=== PATIENT | female | born 1985 | race American Indian/Alaskan Native ===

== ENCOUNTER 2017-12-27 01:13 | Emergency (ER) | payer SELFPAY ==
[2017-12-27 03:10] VITALS: BP 106/67
--- NOTE | 2017-12-27 04:41 | XRay Report ---
FINAL REPORT PROCEDURE: XR FOOT 2V LT TECHNIQUE: LEFT foot radiographs, AP, lateral, and oblique views. CPT 82767 HISTORY: pain and swelling COMPARISON: No prior studies are available for comparison. FINDINGS: Fracture (s) and/or Dislocation(s): None . Alignment: Normal . Joint space(s): Normal . Soft tissues: Normal . Bone mineralization: Normal . Foreign bodies: None . Calcaneal spurring: None . IMPRESSION: Normal Examination .
--- NOTE | 2017-12-27 04:41 | XRay Report ---
FINAL REPORT PROCEDURE: XR FOOT 2V RT TECHNIQUE: RIGHT foot radiographs, AP and lateral views. HISTORY: pain and swelling COMPARISON: No prior studies are available for comparison. FINDINGS: Fracture (s) and/or Dislocation(s): None . Alignment: Normal. Joint space(s): Normal. Soft tissues: Normal. Bone mineralization: Normal. Foreign bodies: None. Calcaneal spurring: None. IMPRESSION: Normal Examination.
--- NOTE | 2017-12-27 04:42 | XRay Report ---
FINAL REPORT PROCEDURE: XR ANKLE 2V LT TECHNIQUE: LEFT ankle radiographs, AP and lateral views. HISTORY: pain and swelling COMPARISON: No prior studies are available for comparison. FINDINGS: Fracture (s) and/or Dislocation(s): None. Alignment: Normal. Joint space(s): Normal. Soft tissues: Normal. Bone mineralization: Normal. Foreign bodies: Normal. Calcaneal spurring: Normal. IMPRESSION: Normal Examination .
--- NOTE | 2017-12-27 04:44 | XRay Report ---
FINAL REPORT PROCEDURE: XR ANKLE 2V RT TECHNIQUE: RIGHT ankle radiographs, AP and lateral views. HISTORY: pain and swelling COMPARISON: No prior studies are available for comparison. FINDINGS: Fracture (s) and/or Dislocation(s): None. Alignment: Normal. Joint space(s): Normal. Soft tissues: Normal. Bone mineralization: Normal. Foreign bodies: Normal. Calcaneal spurring: Normal. IMPRESSION: Normal Examination .
--- NOTE | 2017-12-27 05:15 | Emergency Department Report ---
ED Lower Extremity HPI - General Chief Complaint: Extremity Injury, Lower Stated Complaint: RT ANKLE PAIN Time Seen by Provider: 12/27/17 05:10 Source: patient Mode of arrival: Ambulatory Limitations: No Limitations - History of Present Illness Initial Comments: 32-year-old -Thai female with a past medical history of plantar fasciitis, herpes and seizures come in today complaining of bilateral lower extremity swelling and pain that started yesterday. Patient reports that she is recently moved here from [place] in had a fall from moving her feet too fast. Patient has not taken any pain medication as it she reports it was at home. Complaint: foot injury -: days(s) (1) Injury: Foot: Left, Right (status post fall) Place: street/outdoors Severity scale (0 -10): 6 Context: fall - Related Data Previous Rx's Medication Instructions Recorded Last Taken Type Ibuprofen [Motrin 600 MG tab] 600 mg PO Q8H #30 tablet 12/27/17 Unknown Rx Allergies Allergy/AdvReac Type Severity Reaction Status Date / Time No Known Allergies Allergy Unverified 12/27/17 03:09 ED Review of Systems ROS: Stated complaint: RT ANKLE PAIN Other details as noted in HPI Comment: All other systems reviewed and negative Musculoskeletal: arthralgia ED Past Medical Hx - Past Medical History Previous Medical History?: Yes Hx Seizures: Yes Additional medical history: Herpes, Plantar fasciitis - Surgical History Past Surgical History?: No - Social History Smoking Status: Never Smoker Substance Use Type: None - Medications Home Medications: Home Medications Medication Instructions Recorded Confirmed Last Taken Type Ibuprofen [Motrin 600 MG tab] 600 mg PO Q8H #30 tablet 12/27/17 Unknown Rx ED Physical Exam - General Limitations: No Limitations General appearance: alert, in no apparent distress - Head Head exam: Present: atraumatic, normocephalic - ENT ENT exam: Present: mucous membranes moist - Cardiovascular Cardiovascular Exam: Present: regular rate, normal rhythm. Absent: systolic murmur, diastolic murmur, rubs, gallop - GI/Abdominal GI/Abdominal exam: Present: soft, normal bowel sounds - Extremities Exam Extremities exam: Present: normal inspection, full ROM. Absent: tenderness - Back Exam Back exam: Present: normal inspection - Neurological Exam Neurological exam: Present: alert, oriented X3, normal gait - Psychiatric Psychiatric exam: Present: normal affect, normal mood - Skin Skin exam: Present: warm, dry, intact, normal color. Absent: rash ED Course Vital Signs 12/27/17 03:05 Temperature 97.5 F L Pulse Rate 53 L Respiratory 19 Rate Blood Pressure 106/67 O2 Sat by Pulse 98 Oximetry ED Lower Extremity MDM - Radiology Data X-ray of bilateral feet and bilateral ankle shows normal examination. - Medical Decision Making Patient has been evaluated by this provider fast track. Ibuprofen given for pain management. Discussed the patient to follow-up with her primary care provider or industrial paramedic. Critical care attestation.: If time is entered above; I have spent that time in minutes in the direct care of this critically ill patient, excluding procedure time. ED Disposition Clinical Impression: Bilateral foot pain Disposition: [id number] TO HOME OR SELFCARE Is pt being admited?: No Does the pt Need Aspirin: No Condition: Stable Additional Instructions: Please take pain medication as needed for pain. Follow-up with the industrial paramedic. Prescriptions: Ibuprofen [Motrin 600 MG tab] 600 mg PO Q8H #30 tablet Referrals: PRIMARY CAREMD [Primary Care Provider] - 3-5 Days CALRIN OSCAR DPM [Staff Physician] - 3-5 Days NATE CAMARGO MD [Staff Physician] - 3-5 Days
[2017-12-27] MEDS ORDERED: MOTRIN PO ONE (05:18)
== END 2017-12-27 05:40 | disposition home or self-care (01) ==
LOC: ED 01:13
DX: M79.672 Pain in left foot (principal); M79.671 Pain in right foot; M72.2 Plantar fascial fibromatosis
CPT/HCPCS: 99283

== ENCOUNTER 2020-04-10 03:59 | Emergency (ER) | payer SELFPAY ==
--- NOTE | 2020-04-10 04:14 | Emergency Department Report ---
ED Abdominal Pain HPI - General Stated Complaint: ABDOMINAL PAIN PUI?: No - History of Present Illness Initial Comments: Patient is a A1 34-year-old -Slovenian female with past medical history of seizures who presents to the ED with complaint of acute onset persistent suprapubic pain for the last 2 weeks, and heavy vaginal bleeding for the last 8 hours. Patient states that she suspects that she may be having missed her menstrual cycle a month ago. Patient states that she had been on control using NuvaRing and took this about 2 months ago. Patient states that she has not had a menstrual cycle consistently since then. Patient states that she suspects that she may have conceived and is now having a miscarriage. Patient also complains of nausea and vomiting. Patient denies dizziness, fever, chills, dysuria, urinary frequency and urgency, chest pain, shortness of breath, diarrhea, cough, sore throat, headache, vaginal discharge or heavy lifting and traumatic injury. MD Complaint: abdominal pain, other (Vaginal bleeding) -: Sudden, week(s) (2) Location: suprapubic Radiation: none Migration to: no migration Severity: severe Severity scale (0 -10): 7 Quality: cramping, aching, sharp Consistency: constant Improves With: nothing Worsens With: nothing Context: other (Suspects miscarriage) Associated Symptoms: denies other symptoms, nausea, vomiting, hematuria, other (Vaginal bleeding). denies: diarrhea, fever, chills, constipation, dysuria, hematemesis, hematochezia - Related Data LMP Date: 02/07/20 LMP (females 10-50): 2 months Previous Rx's Medication Instructions Recorded Last Taken Type Ibuprofen [Motrin 600 MG tab] 600 mg PO Q8H #30 tablet 12/27/17 Unknown Rx Ibuprofen [Motrin] 800 mg PO Q8HR PRN #30 tablet 04/10/20 Unknown Rx Ondansetron [Zofran Odt] 4 mg PO Q6HR PRN #20 tab.rapdis 04/10/20 Unknown Rx Allergies Allergy/AdvReac Type Severity Reaction Status Date / Time No Known Allergies Allergy Unverified 12/27/17 03:09 ED Review of Systems ROS: Stated complaint: ABDOMINAL PAIN Other details as noted in HPI Constitutional: denies: chills, fever Eyes: denies: eye pain, eye discharge, vision change ENT: denies: ear pain, throat pain Respiratory: denies: cough, shortness of breath, wheezing Cardiovascular: denies: chest pain, palpitations Endocrine: no symptoms reported Gastrointestinal: abdominal pain, nausea, vomiting. denies: diarrhea Genitourinary: abnormal menses (Vaginal bleeding). denies: urgency, dysuria, discharge Musculoskeletal: denies: back pain, joint swelling, arthralgia Skin: denies: rash, lesions Neurological: denies: headache, weakness, paresthesias Psychiatric: denies: anxiety, depression Hematological/Lymphatic: denies: easy bleeding, easy bruising ED Past Medical Hx - Past Medical History Hx Seizures: Yes Additional medical history: Herpes, Plantar fasciitis - Social History Smoking Status: Never Smoker Substance Use Type: None - Medications Home Medications: Home Medications Medication Instructions Recorded Confirmed Last Taken Type Ibuprofen [Motrin 600 MG tab] 600 mg PO Q8H #30 tablet 12/27/17 Unknown Rx Ibuprofen [Motrin] 800 mg PO Q8HR PRN #30 tablet 04/10/20 Unknown Rx Ondansetron [Zofran Odt] 4 mg PO Q6HR PRN #20 tab.rapdis 04/10/20 Unknown Rx ED Physical Exam - General General appearance: alert, in no apparent distress - Head Head exam: Present: atraumatic, normocephalic, normal inspection - Eye Eye exam: Present: normal appearance, PERRL, EOMI Pupils: Present: normal accommodation - ENT ENT exam: Present: normal exam, normal orophraynx, mucous membranes moist, TM's normal bilaterally, normal external ear exam - Neck Neck exam: Present: normal inspection, full ROM - Respiratory Respiratory exam: Present: normal lung sounds bilaterally. Absent: respiratory distress, wheezes, rales, rhonchi, chest wall tenderness, accessory muscle use, decreased breath sounds, prolonged expiratory - Cardiovascular Cardiovascular Exam: Present: normal rhythm, tachycardia, normal heart sounds. Absent: systolic murmur, diastolic murmur, rubs, gallop - GI/Abdominal GI/Abdominal exam: Present: soft, tenderness (Palpable suprapubic moderate tenderness), normal bowel sounds. Absent: guarding, rebound, hyperactive bowel sounds, hypoactive bowel sounds, organomegaly - Bi-manual exam: Present: other (Pelvic exam deferred patient declined) - Extremities Exam Extremities exam: Present: normal inspection, full ROM, normal capillary refill - Back Exam Back exam: Present: normal inspection, full ROM. Absent: tenderness, CVA tenderness (R), CVA tenderness (L), muscle spasm, paraspinal tenderness, vertebral tenderness - Neurological Exam Neurological exam: Present: alert, oriented X3, CN II-XII intact, normal gait, reflexes normal - Psychiatric Psychiatric exam: Present: normal affect, normal mood - Skin Skin exam: Present: warm, dry, intact, normal color. Absent: rash ED Course Vital Signs 04/10/20 04/10/20 04:07 04:23 Temperature 97.8 F 97.9 F Pulse Rate 106 H 95 H Respiratory 18 18 Rate Blood Pressure 150/98 126/87 O2 Sat by Pulse 97 99 Oximetry ED Medical Decision Making - Lab Data Result diagrams: 04/10/20 04:22 04/10/20 04:22 - Medical Decision Making This is a A1 34-year-old -Slovenian female with past medical history of seizures who presents to the ED with complaint of acute onset persistent suprapubic pain for the last 2 weeks, and heavy vaginal bleeding for the last 8 hours. Patient states that she suspects that she may be having missed her menstrual cycle a month ago. Patient states that she had been on control using NuvaRing and took this about 2 months ago. Patient states that she has not had a menstrual cycle consistently since then. Patient states that she suspects that she may have conceived and is now having a miscarriage. Patient also complains of nausea and vomiting. In the ED, patient is alert and oriented x3 and is not in distress but anxious. Patient was treated for pain in the ED and lab test results were reviewed and are all nonactionable. Serum hCG test was negative. Patient symptoms are likely due to dysmenorrhea. On reevaluation, patient's pain is well controlled medications. 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 - Differential Diagnosis dysmenorrhea; UTI; ; DUB; fibroid; ovarian cyst Critical care attestation.: If time is entered above; I have spent that time in minutes in the direct care of this critically ill patient, excluding procedure time. ED Disposition Clinical Impression: Primary dysmenorrhea, Metrorrhagia, Dysfunctional uterine hemorrhage Abdominal pain Qualifiers: Abdominal location: lower abdomen, unspecified Qualified Code(s): R10.30 - Lower abdominal pain, unspecified Disposition: TO HOME OR SELFCARE Is pt being admited?: No Does the pt Need Aspirin: No Condition: Stable Instructions: Abdominal Pain, Adult, [id number], Metrorrhagia, [id number], Dysmenorrhea, [id number], Dysfunctional Uterine Bleeding Additional Instructions: All lab test results are unremarkable including test which is negative. Take medication with food, drink plenty of fluids and follow up with with your Primary Care Physician or [employer]/Satellite Manager in 3-5 days for reevaluation. Return to the ED immediately if symptoms get worse. Prescriptions: Ibuprofen [Motrin] 800 mg PO Q8HR PRN #30 tablet PRN Reason: Pain , Severe (7-10) Ondansetron [Zofran Odt] 4 mg PO Q6HR PRN #20 tab.rapdis PRN Reason: Nausea Referrals: [facility] [Provider Group] - 3-5 Days ENA REYES MD [Staff Physician] - 3-5 Days Time of Disposition: 05:54 Print Language: FINNISH
[2020-04-10 04:24] VITALS: BP 126/87
[2020-04-10 04:37] LABS: Basophils % (Auto) 0.7 % (0.0-1.8); Eosinophils % (Auto) 0.6 % (0.0-4.3); Hematocrit 38.7 % (30.3-42.9); Hemoglobin 13.5 gm/dl (10.1-14.3); Lymphocytes # (Auto) 1.9 K/mm3 (1.2-5.4); Mean Corpuscular HGB Conc 35 % (30-34); Mean Corpuscular Volume 91 fl (79-97); Monocytes # (Auto) 0.7 K/mm3 (0.0-0.8); Monocytes % (Auto) 9.3 % (0.0-7.3); Platelet Count 224 K/mm3 (140-440); Red Blood Count 4.25 M/mm3 (3.65-5.03); Red Cell Distribution Width 12.8 % (13.2-15.2)
[2020-04-10 04:54] LABS: Bacteria,Urine 1+ /HPF (Negative); Bilirubin,Urine NEG (Negative); Blood,Urine LG (Negative); Color,Urine Yellow (Yellow); Mucus,Urine 3+ /HPF
[2020-04-10 04:58] LABS: Alanine Aminotransferase 62 units/L (7-56); Albumin 4.3 g/dL (3.9-5); BUN/Creatinine Ratio 18; Blood Urea Nitrogen 14 mg/dL (7-17); Calcium 9.9 mg/dL (8.4-10.2); Hemolysis Index 2
[2020-04-10] MEDS ORDERED: ACETAMINOPHEN 500 MG TAB PO ONE (05:44)
[2020-04-10] MEDS ORDERED: ONDANSETRON 4 MG ODT TAB PO ONE (05:44)
[2020-04-10] MEDS ORDERED: IBUPROFEN 600 MG TAB PO ONE (05:44)
== END 2020-04-10 06:16 | disposition home or self-care (01) ==
LOC: ED 03:59
DX: N94.4 Primary dysmenorrhea (principal); N92.1 Excessive and frequent menstruation with irregular cycle; N93.8 Other specified abnormal uterine and vaginal bleeding; R10.30 Lower abdominal pain, unspecified; Z79.899 Other long term (current) drug therapy; Z86.69 Personal history of other diseases of the nervous system and sense organs
CPT/HCPCS: 36415; 80053; 81001; 84703; 85025; Q0162